=== PATIENT | female | born 1970 | race Caucasian/White ===

== ENCOUNTER 2019-11-10 18:51 | Emergency (ER) | payer MEDICAID ==
[~2019-11-10] VITALS: Ht 160 cm; Wt 72.7 kg
[~2019-11-10 18:51] MED LIST: ALBU18HF2 INH; ARIP5TAB14 PO; ASPI81TA52 PO; BUDE10.2 INH; GABA600T13 PO; HYDR-3686 PO; LORA-269 PO; MELO-100 PO; MONT10TA26 PO; NORT25CA5 PO; OMEP-84 PO; SUMA25TA35 PO; TRAZ-256 PO; VENL150T3 PO; VENL75TA90 PO; [UNRECOGNIZED DRUG - CODE] PO
[2019-11-10 21:20] VITALS: BP 132/65
== END 2019-11-10 21:07 | disposition home or self-care (01) ==
LOC: ER 18:52
DX: S90.32XA Contusion of left foot, initial encounter (principal); G43.909 Migraine, unspecified, not intractable, without status migrainosus; J44.9 Chronic obstructive pulmonary disease, unspecified; G89.29 Other chronic pain; M79.7 Fibromyalgia; F41.9 Anxiety disorder, unspecified; F32.9 Major depressive disorder, single episode, unspecified; Z98.890 Other specified postprocedural states; Z98.51 Tubal ligation status; Z56.0 Unemployment, unspecified; Z91.030 Bee allergy status; Z79.82 Long term (current) use of aspirin; Z79.899 Other long term (current) drug therapy; X58.XXXA Exposure to other specified factors, initial encounter; Y93.89 Activity, other specified; Y92.89 Other specified places as the place of occurrence of the external cause; Y99.8 Other external cause status
CPT/HCPCS: 73660; 99283

== ENCOUNTER 2024-01-11 16:14 | Emergency (ER) | payer MEDICAID ==
[~2024-01-11] VITALS: Ht 162.6 cm; Wt 73.0 kg
[~2024-01-11 16:14] MED LIST changes: +ARIP5TAB12 PO; -ARIP5TAB14 PO; +MONT-40 PO; -MONT10TA26 PO
[2024-01-11] MEDS ORDERED: PRED20TA PO (17:43)
[2024-01-11] MEDS ORDERED: LIDO700A32 TOP (17:43)
[2024-01-11] MEDS: HYDROcodone/acetaminophen 5mg/325mg tablet PO ONE (17:52)
[2024-01-11] MEDS: ondansetron 4mg rapidly disintigrating tab PO ONE (17:52)
[2024-01-11] MEDS: ketorolac trometh. 30mg/ml inj. IM ONE (17:52)
[2024-01-11 17:58] VITALS: BP 99/122; PULSE 95; RESP 16; TEMP 98; O2SAT 70
== END 2024-01-11 17:56 | disposition home or self-care (01) ==
LOC: ER 16:14
DX: M25.461 Effusion, right knee (principal); M25.561 Pain in right knee; G43.909 Migraine, unspecified, not intractable, without status migrainosus; J44.9 Chronic obstructive pulmonary disease, unspecified; G89.29 Other chronic pain; F41.9 Anxiety disorder, unspecified; F32.A Depression, unspecified; Z91.030 Bee allergy status; Z79.82 Long term (current) use of aspirin; Z79.899 Other long term (current) drug therapy
CPT/HCPCS: 73564; 96372; 99284; J1885

== ENCOUNTER 2024-01-13 15:41 | Emergency (ER) | payer OTHER, MEDICAID ==
[~2024-01-13] VITALS: Ht 162.6 cm; Wt 72.7 kg
[~2024-01-13 15:41] MED LIST changes: +LIDO700A32 TOP; +PRED20TA PO
[2024-01-13 15:51] VITALS: TEMP 98
[2024-01-13] MEDS ORDERED: HYDR-3973 PO (16:09)
[2024-01-13] MEDS ORDERED: ONDA-243 PO (16:09)
[2024-01-13] MEDS: morphine 4 MG/ML inj SYRINge IV ONE (16:37)
[2024-01-13] MEDS: ondansetron/PF 4mg/2ml inj IV ONE (16:37)
[2024-01-13] MEDS: HYDROcodone/acetaminophen 10/325mg tab PO ONE ×2 (17:40→18:15)
[2024-01-13 18:02] VITALS: BP 99/68; PULSE 84; O2SAT 98
[2024-01-13 18:15] VITALS: RESP 18
== END 2024-01-13 18:50 | disposition home or self-care (01) ==
LOC: ER 15:41
DX: S82.191A Other fracture of upper end of right tibia, initial encounter for closed fracture (principal); G43.909 Migraine, unspecified, not intractable, without status migrainosus; J45.909 Unspecified asthma, uncomplicated; J44.9 Chronic obstructive pulmonary disease, unspecified; G89.29 Other chronic pain; M79.7 Fibromyalgia; F41.9 Anxiety disorder, unspecified; F32.A Depression, unspecified; Z98.890 Other specified postprocedural states; Z98.51 Tubal ligation status; Z56.0 Unemployment, unspecified; M25.561 Pain in right knee; Z91.030 Bee allergy status; Z79.82 Long term (current) use of aspirin; Z79.899 Other long term (current) drug therapy; Z79.51 Long term (current) use of inhaled steroids; W18.39XA Other fall on same level, initial encounter; Y93.89 Activity, other specified; Y92.89 Other specified places as the place of occurrence of the external cause; Y99.8 Other external cause status
CPT/HCPCS: 29505; 73560; 73600; 96374; 96375; 99284; J2270; J2405; A6446; A6449

== ENCOUNTER 2024-03-08 08:16 | Inpatient (IN) | payer OTHER, MEDICAID ==
[2024-03-03 15:24] LABS: BASOPHILS # (AUTO) 0.1 X10'3 (0-0.2); BASOPHILS % (AUTO) 0.9 % (0-1); EOSINOPHILS # (AUTO) 0.1 X10'3 (0-0.9); EOSINOPHILS % (AUTO) 1.5 % (0-6); LYMPHOCYTES # (AUTO) 2.1 X10'3 (1.1-4.8); LYMPHOCYTES % (AUTO) 27.1 % (21-51); MEAN CORPUSCULAR HEMOGLOBIN 28.5 PG (27.0-31.0); MEAN CORPUSCULAR HGB CONC 33.7 g/dL (33.0-36.5); MEAN CORPUSCULAR VOLUME 84.7 FL (78-98); MEAN PLATELET VOLUME 7.9 FL (7.4-10.4); MONOCYTES # (AUTO) 0.5 X10'3 (0-0.9); MONOCYTES % (AUTO) 6.5 % (2-12); PRE OP HEMATOCRIT 36.3 % (35.0-45.0); PRE OP HEMOGLOBIN 12.2 g/dL (12.0-16.0); PRE OP PLATELET COUNT 236 X10'3 (140-440); PRE OP WHITE BLOOD COUNT 7.8 10'3 (4.8-10.8); RED BLOOD COUNT 4.29 X10'6 (4.20-5.60); RED CELL DISTRIBUTION WIDTH 15.3 % (11.5-14.5)
[2024-03-03 15:32] LABS: ALBUMIN 3.2 G/DL (3.4-5.0); ALBUMIN/GLOBULIN RATIO 0.9 (1.1-1.5); ALKALINE PHOSPHATASE 84 IU/L (46-116); BLOOD UREA NITROGEN 11 MG/DL (7-18); BUN/CREATININE RATIO 12.5 (10.0-20.0); CHLORIDE 101 MMOL/L (99-107); CREATININE 0.88 MG/DL (0.40-0.90); PRE OP ALT 28 U/L (30-65); PRE OP ANION GAP 8 (8-16); PRE OP AST 24 U/L (10-37); PRE OP BILIRUB, TOTAL 0.4 MG/DL (0.0-1.0); PRE OP GLUCOSE 127 MG/DL (70-104); PRE OP POTASSIUM 3.7 MMOL/L (3.4-5.1); PRE OP SODIUM 139 MMOL/L (135-145); TOTAL CARBON DIOXIDE 29.6 MMOL/L (24-32); TOTAL PROTEIN 6.9 G/DL (6.4-8.2); eGFR 67 ML/MIN
[~2024-03-08] VITALS: Ht 162.6 cm; Wt 72.7 kg
[2024-03-08] VITALS (28 sets, daily range): BP systolic 98–140; BP diastolic 43–95; PULSE 73–91; RESP 12–23; TEMP 98.3–98.8; O2SAT 80–98
[2024-03-08] MEDS: famotidine 20mg tablet PO ONE (05:30)
[2024-03-08] MEDS: cefazolin 2gm/D5W 100mL 100 ML IV ONE (05:30)
[2024-03-08] MEDS: tranexamic acid inj. 1,000 MG in normal saline IV soln 100ML IV ONE (05:30)
[2024-03-08] MEDS: bacitracin 15gm ointment TP ONE (07:33)
[2024-03-08] MEDS: BUPIVAcaine 2.5mg/ml inj 50ml vial (contains preservative) ONE (07:34)
[~2024-03-08 08:16] MED LIST changes: +ACET-75 PO; -ARIP5TAB12 PO; -BUDE10.2 INH; +CHLO100T36 PO; +CLON0.1T2 PO; +CYCL-394 PO; +DIVA500T9 PO; +FAMO20TA8 PO; -GABA600T13 PO; -HYDR-3686 PO; +HYDR-3972 PO; +HYDR50TA65 PO; +IBUP-1986 PO; +LEVO20CA PO; -LIDO700A32 TOP; -LORA-269 PO; -MELO-100 PO; -MONT-40 PO; +NICO-687 TOP; -NORT25CA5 PO; -OMEP-84 PO; -PRED20TA PO; +TIOT4MIS5 INH; -VENL150T3 PO; -VENL75TA90 PO
[2024-03-08] MEDS: vancomycin 1,500 MG in NS 300ml IV soln IV ONE (09:29)
[2024-03-08] MEDS: ringers solution, lacted 1,000 ML IV SCH ×2 (09:29→12:15)
[2024-03-08] MEDS: morphine 4 MG/ML inj SYRINge IV ONE (10:31)
[2024-03-08] MEDS ORDERED: sevoflurane 250ml liquid IH ONE (11:30)
[2024-03-08] MEDS ORDERED: midazolam 1 mg/ML 2ml injection ONE (11:41)
[2024-03-08] MEDS ORDERED: fentaNYL /PF 50mcg/ml 5ml ampule ONE (12:05)
[2024-03-08] MEDS ORDERED: morphine 4 MG/ML inj SYRINge IV PRN (12:15)
[2024-03-08] MEDS ORDERED: proCHLORperazine 10 MG/2 ml inj IV PRN (12:15)
[2024-03-08] MEDS ORDERED: hydrALAZINE 20mg/ml inj. IV PRN (12:15)
[2024-03-08] MEDS ORDERED: labetalol 20mg/4ml (5mg/ml) syringe IV PRN (12:15)
[2024-03-08] MEDS ORDERED: meperidine/PF 25mg/ml syringe IV PRN (12:15)
[2024-03-08] MEDS ORDERED: HYDROmorphone/PF 0.2 MG/ML SYRINGE IV PRN (12:15)
[2024-03-08] MEDS ORDERED: morphine 2 MG/ML inj. syringe IV PRN (12:15)
[2024-03-08] MEDS ORDERED: ROPIVAcaine 0.5% (5mg/ml) 30ml vial ONE (12:18)
[2024-03-08] MEDS ORDERED: ondansetron/PF 4mg/2ml inj ONE (12:18)
[2024-03-08] MEDS ORDERED: LIDOcaine 2% (20mg/ml) 5ml vial ONE (12:18)
[2024-03-08] MEDS ORDERED: dexamethasone sod phosphate 4mg/ml inj. ONE (12:18)
[2024-03-08] MEDS ORDERED: propofol inj 20 ML IV ONE (12:18)
[2024-03-08] MEDS ORDERED: morphine 10mg/ml inj. ONE (13:12)
[2024-03-08] MEDS ORDERED: labetalol 20mg/4ml (5mg/ml) syringe IV ONE (13:40)
[2024-03-08] MEDS ORDERED: vancomycin 1,000mg inj ONE (14:03)
[2024-03-08] MEDS ORDERED: HYDROmorphone 1 mg/ml syringe IV PRN (15:00)
[2024-03-08] MEDS ORDERED: naloxone 0.4 mg/ml inj IV PRN (15:00)
[2024-03-08] MEDS ORDERED: acetaminophen 325mg tablet PO PRN (15:00)
[2024-03-08] MEDS ORDERED: magnesium hydroxide 30ml (MOM) UD suspension PO PRN (15:00)
[2024-03-08] MEDS ORDERED: ondansetron/PF 4mg/2ml inj IV PRN (15:00)
[2024-03-08] MEDS ORDERED: bisacodyl 10mg suppository rectal RC PRN (15:00)
[2024-03-08] MEDS ORDERED: HYDROmorphone inj. 0.5 MG/0.5 ML DISP.SYRIN IV PRN (15:00)
[2024-03-08] MEDS ORDERED: oxyCODONE IR 5mg (immed. release) tablet PO PRN (15:00)
[2024-03-08] MEDS ORDERED: diphenhydrAMINE 25mg capsule PO PRN ×2 (15:00)
[2024-03-08] MEDS: acetaminophen 1,000mg/100ml IV 100 ML IV ONE (15:01)
[2024-03-08] MEDS: ceFAZolin/D5W- 1GM premix 50 ML IV SCH (16:00)
[2024-03-08] MEDS: ondansetron/PF 4mg/2ml inj IV PRN (16:25)
[2024-03-08] MEDS: HYDROmorphone/PF 0.2 MG/ML SYRINGE IV PRN (16:29)
[2024-03-08] MEDS: tranexamic acid inj. 1,000 MG in normal saline 100ml IV soln 90 ML IV ONE (18:37)
[2024-03-08] MEDS: oxyCODONE IR 5mg (immed. release) tablet PO PRN (18:42)
[2024-03-08] MEDS: acetaminophen 325mg tablet PO SCH (19:39)
[2024-03-08] MEDS: vancomycin/NS 1 GM ADD-VANTAGE 250 ML IV SCH (19:39)
[2024-03-08] MEDS ORDERED: SUMAtriptan 25 MG tablet PO PRN (20:35)
[2024-03-08] MEDS ORDERED: cloNIDine 0.1 mg tablet PO PRN (20:35)
[2024-03-08] MEDS ORDERED: chlorproMAZINE HCL 100 MG TABLET PO SCH (21:00)
[2024-03-08] MEDS ORDERED: chlorproMAZINE 25mg tablet PO SCH (21:01)
[2024-03-08] MEDS: potassium Cl 20mEq in NS 1,000 ML IV SCH (21:32)
[2024-03-08] MEDS: prazosin 1mg capsule PO SCH (21:33)
[2024-03-08] MEDS: gabapentin 300mg capsule PO SCH (21:33)
[2024-03-08] MEDS: traZODone 50mg tablet PO SCH (21:33)
[2024-03-08] MEDS: sennosides 8.6mg tablet PO SCH (21:34)
[2024-03-08] MEDS: divalproex sod 250mg ER (24-hour) tablet PO SCH (21:35)
[2024-03-08] MEDS: chlorproMAZINE 25mg tablet PO SCH (22:45)
[2024-03-09 02:00] VITALS: BP 111/63; PULSE 60; RESP 18; TEMP 98.2; O2SAT 95
[2024-03-09] MEDS: mag hydrox/Alum hydrox/simeth 30ml oral suspension PO ONE (02:04)
[2024-03-09 05:00] VITALS: BP 103/67; PULSE 94; RESP 16; TEMP 98.6; O2SAT 95
[2024-03-09] MEDS: famotidine 20mg tablet PO SCH (07:43)
[2024-03-09] MEDS: aspirin 81mg, enteric-coated 1 TAB TABLET.DR PO SCH (07:43)
[2024-03-09] MEDS: nicotine 21mg patch - 24 hr TD SCH (07:43)
[2024-03-09 08:00] VITALS: RESP 16; O2SAT 94
[2024-03-09] MEDS ORDERED: non-formulary drug (Acetaminophen 2 TAB) PO SCH (08:00)
[2024-03-09] MEDS ORDERED: LEVOMILNACIPRAN HYDROCHLORIDE 20 MG PO SCH (08:00)
[2024-03-09 09:17] LABS: ALANINE AMINOTRANSFERASE 19 U/L (12-78); ALBUMIN 2.7 G/DL (3.4-5.0); ALBUMIN/GLOBULIN RATIO 0.8 (1.1-1.5); ALKALINE PHOSPHATASE 59 IU/L (46-116); ANION GAP 10 (8-16); ASPARTATE AMINO TRANSFERASE 20 U/L (10-37); BILIRUBIN,TOTAL 0.2 MG/DL (0.1-1.0); BLOOD UREA NITROGEN 9 MG/DL (7-18); BUN/CREATININE RATIO 10.5 (10.0-20.0); CALCIUM 8.8 MG/DL (8.5-10.1); CHLORIDE 107 MMOL/L (99-107); CREATININE 0.86 MG/DL (0.40-0.90); GLUCOSE 123 MG/DL (70-104); POTASSIUM 4.3 MMOL/L (3.5-5.1); SODIUM 140 MMOL/L (135-145); TOTAL CARBON DIOXIDE 23.2 MMOL/L (24-32); TOTAL PROTEIN 6.1 G/DL (6.4-8.2); eCRCL 64 ML/MIN; eGFR 69 ML/MIN
[2024-03-09 09:46] LABS: BASOPHILS % (AUTO) 0.3 % (0-1); EOSINOPHILS % (AUTO) 0 % (0-6); HEMATOCRIT 31.8 % (35.0-45.0); HEMOGLOBIN 10.5 g/dl (12.0-16.0); LYMPHOCYTES # (AUTO) 1.9 X10'3 (1.1-4.8); LYMPHOCYTES % (AUTO) 15.3 % (21-51); MEAN CORPUSCULAR HEMOGLOBIN 28.5 PG (27.0-31.0); MEAN CORPUSCULAR HGB CONC 33.1 g/dL (33.0-36.5); MEAN PLATELET VOLUME 7.8 FL (7.4-10.4); MONOCYTES # (AUTO) 1.1 X10'3 (0-0.9); MONOCYTES % (AUTO) 8.8 % (2-12); NEUTROPHILS # (AUTO) 9.4 X10'3 (1.8-7.7); NEUTROPHILS % (AUTO) 75.6 % (42-75); PLATELET COUNT 258 X10'3 (140-440); RED CELL DISTRIBUTION WIDTH 15.4 % (11.5-14.5); WHITE BLOOD COUNT 12.4 X10'3 (4.5-11.0)
[2024-03-09 10:00] VITALS: BP 103/67; PULSE 94; RESP 16; TEMP 98.6; O2SAT 95
[2024-03-09 10:28] VITALS: RESP 20
[2024-03-09] MEDS ORDERED: OXYC-658 PO (12:59)
[2024-03-09] MEDS ORDERED: APIX5TAB3 PO (17:21)
[2024-03-09] MEDS ORDERED: celeCOXIB 100mg capsule PO SCH (20:00)
[2024-03-10] MEDS ORDERED: acetaminophen 325mg tablet PO PRN (15:00)
== END 2024-03-09 15:14 | disposition home or self-care (01) | DRG 494 ==
LOC: PAS 08:16 → EDSTATUS 10:15 → PAS IN 15:04 → ORTHO 4S 17:00
PROVIDERS: ADMIT Orthopaedic Surgery; ATTEND Orthopaedic Surgery
PROC: 0QPG04Z Removal of Internal Fixation Device from Right Tibia, Open Approach (ICD-10-PCS; 2024-03-08)
PROC: 3E0T3BZ Introduction of Anesthetic Agent into Peripheral Nerves and Plexi, Percutaneous Approach (ICD-10-PCS; 2024-03-08)
PROC: 0QSG04Z Reposition Right Tibia with Internal Fixation Device, Open Approach (ICD-10-PCS; principal; 2024-03-08 11:30)
DX: S82.191A Other fracture of upper end of right tibia, initial encounter for closed fracture (principal); W18.39XA Other fall on same level, initial encounter; F32.A Depression, unspecified; F41.9 Anxiety disorder, unspecified; G43.909 Migraine, unspecified, not intractable, without status migrainosus; J44.9 Chronic obstructive pulmonary disease, unspecified; E03.9 Hypothyroidism, unspecified; Y93.89 Activity, other specified; Y92.89 Other specified places as the place of occurrence of the external cause; Y99.8 Other external cause status; Z91.030 Bee allergy status
CPT/HCPCS: 36415; 71046; 73590; 76000; 80053; 85025; 87081; 93005; 97116; 97161; 97530; A4215; A4618; A6449; A7000; C1713; G0378; J0131; J0690; J0735; J1100; J1171; J2250; J2270; J2274; J2405; J2704; J2795; J3010; J3370; J3480; J3490; J7120; Q0161

== ENCOUNTER 2024-03-30 15:28 | Emergency (ER) | payer MEDICAID, OTHER ==
[~2024-03-30] VITALS: Ht 160 cm; Wt 69.0 kg
[~2024-03-30 15:28] MED LIST changes: +APIX5TAB3 PO; -IBUP-1986 PO; +OXYC-658 PO
[2024-03-30 15:41] VITALS: BP 125/79; PULSE 102; RESP 18; TEMP 98.8; O2SAT 99
== END 2024-03-30 18:42 | disposition home or self-care (01) ==
LOC: ER 15:28
DX: S82.291D Other fracture of shaft of right tibia, subsequent encounter for closed fracture with routine healing (principal); J44.89 Other specified chronic obstructive pulmonary disease; M79.7 Fibromyalgia; Z91.030 Bee allergy status; Z79.1 Long term (current) use of non-steroidal anti-inflammatories (NSAID); Z79.82 Long term (current) use of aspirin; Z79.899 Other long term (current) drug therapy; Z98.51 Tubal ligation status; X58.XXXD Exposure to other specified factors, subsequent encounter
CPT/HCPCS: 93971; 99284

== ENCOUNTER 2024-04-14 17:43 | Emergency (ER) | payer OTHER ==
[~2024-04-14] VITALS: Ht 162.6 cm; Wt 72.7 kg
[2024-04-14 22:07] LABS: BASOPHILS # (AUTO) 0.1 X10'3 (0-0.2); BASOPHILS % (AUTO) 1.1 % (0-1); EOSINOPHILS # (AUTO) 0.2 X10'3 (0-0.9); EOSINOPHILS % (AUTO) 1.6 % (0-6); HEMATOCRIT 37.7 % (35.0-45.0); HEMOGLOBIN 12.8 g/dl (12.0-16.0); LYMPHOCYTES % (AUTO) 33.7 % (21-51); MEAN CORPUSCULAR HEMOGLOBIN 28.1 PG (27.0-31.0); MEAN CORPUSCULAR HGB CONC 33.9 g/dL (33.0-36.5); MEAN CORPUSCULAR VOLUME 82.8 FL (78-98); MEAN PLATELET VOLUME 7.7 FL (7.4-10.4); MONOCYTES # (AUTO) 0.8 X10'3 (0-0.9); MONOCYTES % (AUTO) 6.6 % (2-12); NEUTROPHILS # (AUTO) 6.8 X10'3 (1.8-7.7); PLATELET COUNT 307 X10'3 (140-440); RED BLOOD COUNT 4.56 X10'6 (4.20-5.60); RED CELL DISTRIBUTION WIDTH 14.8 % (11.5-14.5); WHITE BLOOD COUNT 11.9 X10'3 (4.5-11.0)
[2024-04-14] MEDS ORDERED: DOXY-462 PO (23:30)
[2024-04-14] MEDS: ibuprofen tablet 400 MG TABLET PO ONE (23:30)
[2024-04-14] MEDS ORDERED: HYDR-3965 PO (23:30)
[2024-04-14] MEDS: DOXYCYCLINE 100MG CAPSULE PO STA (23:31)
[2024-04-14 23:32] VITALS: BP 128/91; PULSE 95; RESP 15; O2SAT 96
[2024-04-14 23:45] VITALS: TEMP 98.9
[2024-04-15] MEDS ORDERED: HYDR-3965 PO (00:33)
== END 2024-04-14 23:47 | disposition home or self-care (01) ==
LOC: ER 17:44
DX: L03.115 Cellulitis of right lower limb (principal); M79.604 Pain in right leg; M79.7 Fibromyalgia; G43.909 Migraine, unspecified, not intractable, without status migrainosus; J45.909 Unspecified asthma, uncomplicated; J44.9 Chronic obstructive pulmonary disease, unspecified; G89.29 Other chronic pain; F41.9 Anxiety disorder, unspecified; F32.A Depression, unspecified; Z98.890 Other specified postprocedural states; Z98.51 Tubal ligation status; Z56.0 Unemployment, unspecified; Z91.030 Bee allergy status; Z79.899 Other long term (current) drug therapy; Z79.82 Long term (current) use of aspirin
CPT/HCPCS: 36415; 73590; 83605; 85025; 85651; 86140; 93971; 99285

== ENCOUNTER 2024-05-23 13:44 | Emergency (ER) | payer MEDICAID, OTHER ==
[~2024-05-23] VITALS: Ht 162.6 cm; Wt 72.7 kg
[2024-05-23 15:22] LABS: BILIRUBIN,URINE NEGATIVE (Neg); CLARITY,URINE SLIGHTLY CLOUDY (Clear); COLOR,URINE YELLOW (Yellow); GLUCOSE, URINE NEGATIVE (Neg); KETONES,URINE TRACE mg/dl (Neg); LEUKOCYTE ESTERASE ,URINE LARGE (Neg); NITRITES, URINE NEGATIVE (Neg); OCCULT BLOOD,URINE NEGATIVE (Neg); PROTEIN,URINE NEGATIVE (Neg); UROBILINOGEN,URINE 0.2 E.U/dL (0.2-1.0)
[2024-05-23 15:31] LABS: UA COLLECTION TYPE CLN CATCH MIDSTREAM
[2024-05-23 15:33] LABS: BACTERIA,URINE 1+ /HPF (Neg); RBC,URINE 0-2 /HPF (0-2); RENAL CELLS, URINE FEW /HPF; SQUAMOUS EPITHELIAL CELL,UR FEW /LPF (FEW); WBC,URINE TNTC /HPF (0-4)
[2024-05-23] MEDS ORDERED: NITR100C6 PO (16:46)
[2024-05-23] MEDS ORDERED: DIF150T PO (16:46)
[2024-05-23 16:55] VITALS: BP 122/60; PULSE 80; RESP 16; TEMP 98.9; O2SAT 99
== END 2024-05-23 16:56 | disposition home or self-care (01) ==
LOC: ER 13:45
DX: N39.0 Urinary tract infection, site not specified (principal); B37.31 Acute candidiasis of vulva and vagina; G43.909 Migraine, unspecified, not intractable, without status migrainosus; J45.909 Unspecified asthma, uncomplicated; J44.9 Chronic obstructive pulmonary disease, unspecified; M79.7 Fibromyalgia; Z91.030 Bee allergy status; Z79.1 Long term (current) use of non-steroidal anti-inflammatories (NSAID); Z79.82 Long term (current) use of aspirin; Z79.899 Other long term (current) drug therapy; Z98.51 Tubal ligation status
CPT/HCPCS: 81001; 87077; 87088; 87186; 99283

== ENCOUNTER 2025-04-02 13:40 | Outpatient (CLI) | payer MEDICAID ==
[~2025-04-02 13:40] MED LIST changes: +NITR100C6 PO
--- NOTE | 2025-04-02 15:16 | RADIOLOGY REPORT ---
EXAM: CT CT CHEST LOW DOSE HISTORY: ENCNTR SCREEN FOR MALIGNANT NEOPLASM OF RESPIRATORY ORGANS COMPARISON: None TECHNIQUE: Noncontrast helical CT images of the chest were performed utilizing low dose lung cancer screening protocol. Sagittal and coronal reformatted images were obtained. This CT exam was performed using one or more of the following dose reduction techniques: Automated exposure control, adjustment of the mA and/or kV according to patient size, or use of iterative reconstruction technique. Radiation Dose: CT Dose: CTDI volume is 2.8 mGy. Dose-length product is 105.29 mGy*cm FINDINGS: No noncalcified pulmonary nodules, consolidative infiltrates, pneumothorax, pleural effusions, or pulmonary edema. There is paraseptal emphysema, greatest in the upper lobes. No suspicious mediastinal or axillary adenopathy. The heart is not enlarged. There is a trace pericardial effusion. No thoracic aortic aneurysm. Bovine aortic arch is incidentally noted. The liver is diffusely fatty density. There is mild thoracic degenerative disc disease. There are postoperative changes of ACDF, not fully imaged here. IMPRESSION: 1. No noncalcified pulmonary nodules or other acute intrathoracic process. 2. Paraseptal emphysema. 3. Hepatic steatosis. Lung-RADS 1. Negative. Continue annual screening with LDCT in 12 months. Lung- RADS [id number].
== END 2025-04-02 23:59 | disposition home or self-care (01) ==
LOC: RAD 13:40
PROVIDERS: ATTEND Nurse Practitioner
DX: Z12.2 Encounter for screening for malignant neoplasm of respiratory organs (principal); R91.8 Other nonspecific abnormal finding of lung field; K76.0 Fatty (change of) liver, not elsewhere classified; J84.10 Pulmonary fibrosis, unspecified; J43.9 Emphysema, unspecified; Z87.891 Personal history of nicotine dependence
CPT/HCPCS: 71271